=== PATIENT | female | born 1945 | race Caucasian/White ===

== ENCOUNTER 2017-10-29 19:26 | Inpatient (IN) | payer MEDICARE ==
[~2017-10-29] VITALS: Ht 162.6 cm; Wt 55.8 kg
--- NOTE | 2017-10-29 19:40 | NUR ---
LAB AT BEDSIDE FOR DRAW.
--- NOTE | 2017-10-29 19:50 | NUR ---
CALLED FOR GPS BED
--- NOTE | 2017-10-29 19:50 | NUR ---
PT TO ER BED 6. BIB [employer] FOR +SI/-HI. PER [employer] PT STATED SHE WANTED TO "RUN INTO TRAFFIC". PT PLACED IN ON USABILITY ARCHITECT. VSS/RESP EVEN UNLABORED/NAD NOTED/SKIN WARM AND DRY/AFEBRILE/DENIES N-V-D/AOX4. AWAITNG MD CHOI.
[2017-10-29 19:52] LABS: BASOPHILS # (AUTO) 0.1 /CMM (0.0-0.2); BASOPHILS % (AUTO) 1.2 % (0.0-2.0); EOSINOPHILS % (AUTO) 1.1 % (0.0-6.0); HEMATOCRIT 39 % (33-45); HEMOGLOBIN 12.4 g/dL (11.5-14.8); LYMPHOCYTES # (AUTO) 1.1 /CMM (0.8-4.8); LYMPHOCYTES % (AUTO) 18.7 % (20.0-44.0); MEAN CORPUSCULAR HEMOGLOBIN 28 PG (26.0-33.0); MEAN CORPUSCULAR HGB CONC 32 g/dl (31.0-36.0); MEAN CORPUSCULAR VOLUME 87 fL (82-100); MONOCYTES # (AUTO) 0.5 /CMM (0.1-1.30); MONOCYTES % (AUTO) 9.1 % (2.0-12.0); NEUTROPHILS # (AUTO) 4.1 /CMM (1.8-8.9); NEUTROPHILS % (AUTO) 69.9 % (43.0-81.0); PLATELET COUNT (AUTO) 242 /CMM (150-450); RDW COEFFICIENT OF VARIATION 14.1 (11.5-15.0); RED BLOOD CELL COUNT(AUTO) 4.45 MIL/uL (4.0-5.2); WHITE BLOOD COUNT (AUTO) 5.8 K/uL (4.3-11.0)
--- NOTE | 2017-10-29 19:52 | NUR ---
URINE SPECIMEN OBTAINED AND SENT TO THE LAB.
[2017-10-29 20:02] LABS: CALCIUM, SERUM 8.5 mg/dL (8.5-10.1); CARBON DIOXIDE 25 mmol/L (21-32); CHLORIDE 103 mmol/L (98-107); CREATININE 1.1 mg/dL (0.6-1.3); GLUCOSE 123 mg/dL (74-106); POTASSIUM 4.5 mmol/L (3.5-5.1); SODIUM SERUM 139 mmol/L (136-145); UREA NITROGEN, BLOOD 30 mg/dL (7-18)
[2017-10-29 20:06] LABS: ALANINE AMINOTRANSFERASE 24 U/L (12-78); ALBUMIN 3.5 g/dL (3.4-5.0); ALCOHOL, BLOOD < 3 mg/dL (0-0); ALKALINE PHOSPHATASE 102 U/L (46-116); ASPARTATE AMINOTRANSFERASE 28 U/L (15-37); BILIRUBIN,DIRECT 0.1 mg/dL (0.0-0.2); BILIRUBIN,TOTAL 0.3 mg/dL (0.2-1.0); TOTAL PROTEIN, SERUM 8.5 g/dL (6.4-8.2)
[2017-10-29 20:10] LABS: SALICYLATE 2.6 mg/dL (2.8-20.0)
--- NOTE | 2017-10-29 20:14 | NUR ---
BED 217 ITS A SINGLE
[2017-10-29 20:28] LABS: ACETAMINOPHEN < 10 ug/ml (10-30)
[2017-10-29 21:09] LABS: APPEARANCE,URINE CLEAR (CLEAR); BILIRUBIN,URINE NEGATIVE (NEGATIVE); BLOOD, URINE TRACE Ery/uL (NEGATIVE); COLOR,URINE YELLOW (YELLOW); KETONES,URINE NEGATIVE (NEGATIVE); LEUKOCYTE ESTERASE ,URINE NEGATIVE (NEGATIVE); NITRITE, URINE NEGATIVE (NEGATIVE); PH,URINE 5.5 (5.0-8.0); PROTEIN,URINE TRACE mg/dl (NEGATIVE); UGLUCOSE NEGATIVE (NEGATIVE); UROBILINOGEN,URINE 0.2 EU/dL (0.2)
--- NOTE | 2017-10-29 21:10 | NUR ---
REPORT GIVEN TO INES CARR FOR [facility].
--- NOTE | 2017-10-29 21:12 | NUR ---
PT RANSPORTED TO [facility] VIA WC WITH EMT. VSS.
[2017-10-29 21:14] LABS: RBC,URINE 0-2 /HPF (0-2); WBC,URINE 0-2 /HPF (0-3)
[2017-10-29 21:15] LABS: BACTERIA,URINE 1+ /HPF (None Seen)
[2017-10-29 21:30] VITALS: BP 148/78
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
[2017-10-29] MEDS ORDERED: MAGNESIUM HYDROXIDE 30 ML UDC PO PRN (22:00)
[2017-10-29] MEDS: ACETAMINOPHEN 325 MG TABLET PO PRN (22:20)
[2017-10-29] MEDS: TEMAZEPAM 7.5 MG CAPSULE PO PRN (22:55)
[2017-10-29 23:34] VITALS: BP 148/78
[2017-10-30 07:31] LABS: BASOPHILS % (AUTO) 0.7 % (0.0-2.0); EOSINOPHILS % (AUTO) 2.7 % (0.0-6.0); HEMATOCRIT 38 % (33-45); HEMOGLOBIN 12.6 g/dL (11.5-14.8); LYMPHOCYTES # (AUTO) 1.4 /CMM (0.8-4.8); LYMPHOCYTES % (AUTO) 28.2 % (20.0-44.0); MEAN CORPUSCULAR HEMOGLOBIN 29 PG (26.0-33.0); MEAN CORPUSCULAR HGB CONC 33 g/dl (31.0-36.0); MEAN CORPUSCULAR VOLUME 87 fL (82-100); MONOCYTES # (AUTO) 0.5 /CMM (0.1-1.30); MONOCYTES % (AUTO) 9.9 % (2.0-12.0); NEUTROPHILS # (AUTO) 2.9 /CMM (1.8-8.9); NEUTROPHILS % (AUTO) 58.5 % (43.0-81.0); PLATELET COUNT (AUTO) 228 /CMM (150-450); RDW COEFFICIENT OF VARIATION 14.3 (11.5-15.0); RED BLOOD CELL COUNT(AUTO) 4.39 MIL/uL (4.0-5.2); WHITE BLOOD COUNT (AUTO) 4.9 K/uL (4.3-11.0)
[2017-10-30 07:48] LABS: CHOLESTEROL 186 mg/dL (<200); HDL CHOLESTEROL 85 mg/dL (40-60); LDL 84 mg/dL (0-99); TRIGLYCERIDES 91 mg/dL (30-150)
[2017-10-30 07:51] LABS: ALBUMIN 3.4 g/dL (3.4-5.0); BILIRUBIN,TOTAL 0.5 mg/dL (0.2-1.0); CALCIUM, SERUM 8.3 mg/dL (8.5-10.1); CREATININE 1.2 mg/dL (0.6-1.3); POTASSIUM 3.6 mmol/L (3.5-5.1); TOTAL PROTEIN, SERUM 8.4 g/dL (6.4-8.2)
[2017-10-30 09:05] VITALS: BP 117/71
[2017-10-30 16:00] VITALS: BP 111/58
[2017-10-30] MEDS: SERTRALINE HCL 25 MG TABLET PO SCH (17:27)
[2017-10-30 20:00] VITALS: BP 136/93
[2017-10-30 21:07] VITALS: BP 136/93
[2017-10-30] MEDS: DONEPEZIL 5 MG TABLET PO SCH (22:14)
[2017-10-30] MEDS: TEMAZEPAM 7.5 MG CAPSULE PO PRN (22:15)
--- NOTE | 2017-10-31 07:05 | NUR ---
gps initial notes Received patient in the [address] way walking around, verbally responsive and no complaint of pain or discomfort noted, on room air and tolerated well. No unusual behavior noted. Will continue to monitor.
[2017-10-31 08:00] VITALS: BP 110/54
[2017-10-31 09:00] VITALS: BP 110/54
[2017-10-31] MEDS ORDERED: ACETAMINOPHEN 650 MG/20.3 ML UDC PO PRN (09:00)
[2017-10-31 16:00] VITALS: BP 177/76
[2017-10-31] MEDS: SERTRALINE HCL 25 MG TABLET PO SCH (17:05)
[2017-10-31] MEDS: ACETAMINOPHEN 325 MG TABLET PO PRN (18:09)
--- NOTE | 2017-10-31 19:24 | NUR ---
gps notes spoke to Adam Alonzo regarding patient BP of 165/72 and per MD to keep monitoring patient. Per MD patient maybe just anxious. Endorsed to ne3xt shift RN.
[2017-10-31 19:54] VITALS: BP 162/83
[2017-10-31] MEDS: LORAZEPAM 0.5 MG TABLET PO PRN (20:18)
[2017-10-31] MEDS: DONEPEZIL 5 MG TABLET PO SCH (22:16)
[2017-11-01 08:00] VITALS: BP 142/87
--- NOTE | 2017-11-01 09:29 | NUR ---
KARELY faxed referral to Ashly family literacy coordinator at [facility] Address: [address] [place] [address] for review.
--- NOTE | 2017-11-01 10:43 | NUR ---
INITIAL DISCHARGE PLAN: Per pts daughter, pt needs SNF placement. Pts daughter is working towards relocating pt to [place] but will need placement in the interim. SW will help form a safe and proper discharge in collaboration with .
--- NOTE | 2017-11-01 10:43 | NUR ---
SW WAS CONTACTED BY Ashly clinical administrative coordinator at [facility] Address: [address] [place] [address] stating that pt was accepted to their facility.
[2017-11-01 16:00] VITALS: BP 123/93
[2017-11-01] MEDS: SERTRALINE HCL 25 MG TABLET PO SCH (16:13)
[2017-11-01] MEDS ORDERED: QUETIAPINE FUMARATE 25 MG TABLET PO SCH ×2 (20:00)
[2017-11-01 20:15] VITALS: BP 154/70
[2017-11-01] MEDS: DONEPEZIL 5 MG TABLET PO SCH (21:26)
[2017-11-02 08:00] VITALS: BP 149/70
[2017-11-02 16:00] VITALS: BP 157/88
[2017-11-02 20:01] VITALS: BP 154/70
[2017-11-02] MEDS: QUETIAPINE FUMARATE 25 MG TABLET PO SCH (20:15)
[2017-11-02] MEDS: DONEPEZIL 5 MG TABLET PO SCH (21:21)
[2017-11-03 08:15] VITALS: BP 134/78
[2017-11-03] MEDS: DIVALPROEX SODIUM 125 MG CAP.SPRINK PO SCH ×2 (12:16→21:09)
[2017-11-03 16:14] VITALS: BP 140/76
[2017-11-03] MEDS: MAG HYDROX/AL HYDROX/SIMETH 30 ML UDC PO PRN (17:05)
--- NOTE | 2017-11-03 17:05 | NUR ---
GPS/RN-NOTES PATIENT C/O INDIGESTION. MAALOX 30ML GIVEN PRN ORDER. WILL CONT. MONITORING.
--- NOTE | 2017-11-03 18:51 | NUR ---
GPS/RN-NOTES PATIENT C/O OF DIARRHEA X3, [employer] MADE AWARE WITH THE T.O ORDER OF KUB OF ABDOMEN AND STOOL X1 FOR C-DIFF TEST. WILL ENDORSE TO INCOMING NURSE FOR THE STOOL COLLECTION AND CONTINUITY OF CARE.
[2017-11-03 20:00] VITALS: BP 151/86
[2017-11-03] MEDS: QUETIAPINE FUMARATE 25 MG TABLET PO SCH (20:34)
[2017-11-03] MEDS: DONEPEZIL 5 MG TABLET PO SCH (21:09)
--- NOTE | 2017-11-04 06:17 | NUR ---
GPS/RN PATIENT IS AWAKE AT THIS TIME, PATIENT STATED SHE HAD A GOOD NIGHT SLEEP, PATIENT IS CALM AND COMFORTABLE, ALL NEEDS ATTENDED AT THIS TIME, WILL CONTINUE TO MONITOR.
--- NOTE | 2017-11-04 07:25 | NUR ---
GPS/RN NO BOWEL MOVEMENT NOTED THE WHOLE SHIFT. ENDORSED.
[2017-11-04 07:54] LABS: BASOPHILS # (AUTO) 0.1 /CMM (0.0-0.2); BASOPHILS % (AUTO) 1.1 % (0.0-2.0); EOSINOPHILS % (AUTO) 2.2 % (0.0-6.0); HEMATOCRIT 38 % (33-45); HEMOGLOBIN 12.2 g/dL (11.5-14.8); LYMPHOCYTES # (AUTO) 1.4 /CMM (0.8-4.8); LYMPHOCYTES % (AUTO) 29.6 % (20.0-44.0); MEAN CORPUSCULAR HEMOGLOBIN 28 PG (26.0-33.0); MEAN CORPUSCULAR HGB CONC 32 g/dl (31.0-36.0); MEAN CORPUSCULAR VOLUME 87 fL (82-100); MONOCYTES # (AUTO) 0.6 /CMM (0.1-1.30); MONOCYTES % (AUTO) 11.3 % (2.0-12.0); NEUTROPHILS # (AUTO) 2.7 /CMM (1.8-8.9); NEUTROPHILS % (AUTO) 55.8 % (43.0-81.0); PLATELET COUNT (AUTO) 226 /CMM (150-450); RDW COEFFICIENT OF VARIATION 14.3 (11.5-15.0); RED BLOOD CELL COUNT(AUTO) 4.33 MIL/uL (4.0-5.2); WHITE BLOOD COUNT (AUTO) 4.9 K/uL (4.3-11.0)
[2017-11-04 08:00] VITALS: BP 123/65
[2017-11-04] MEDS: DIVALPROEX SODIUM 125 MG CAP.SPRINK PO SCH ×5 (08:07→21:02)
[2017-11-04 08:08] LABS: CALCIUM, SERUM 8.8 mg/dL (8.5-10.1); CREATININE 0.9 mg/dL (0.6-1.3); POTASSIUM 4.6 mmol/L (3.5-5.1)
[2017-11-04] MEDS: LORAZEPAM 0.5 MG TABLET PO PRN (14:18)
--- NOTE | 2017-11-04 14:19 | NUR ---
RN NOTES ADMINISTERED ATIVAN 0.5 MG PO RN FOR ANXIETY PER PATIENT REQUEST, V/S TAKEN STABLE BP- 125/69, P-79, CONTINUED MONITORING.
[2017-11-04 16:10] VITALS: BP 139/99
[2017-11-04] MEDS: MAG HYDROX/AL HYDROX/SIMETH 30 ML UDC PO PRN (18:56)
--- NOTE | 2017-11-04 18:57 | NUR ---
RN NOTES ADMINISTERED MAALOX 30 MG/ML FOR UPSET STOMACH PER PATIENT REQUEST, CONTINUED MONITORING.
[2017-11-04 20:00] VITALS: BP 140/88
[2017-11-04] MEDS: QUETIAPINE FUMARATE 25 MG TABLET PO SCH (21:02)
[2017-11-04] MEDS: DONEPEZIL 5 MG TABLET PO SCH (21:52)
[2017-11-04] MEDS: TEMAZEPAM 7.5 MG CAPSULE PO PRN (21:52)
[2017-11-04] MEDS: ACETAMINOPHEN 325 MG TABLET PO PRN (21:53)
[2017-11-05 08:00] VITALS: BP 136/68
[2017-11-05] MEDS: DIVALPROEX SODIUM 125 MG CAP.SPRINK PO SCH ×3 (08:19→20:14)
[2017-11-05] MEDS: ACETAMINOPHEN 325 MG TABLET PO PRN (14:37)
[2017-11-05 16:00] VITALS: BP 120/65
[2017-11-05 20:00] VITALS: BP 129/55
[2017-11-05] MEDS: QUETIAPINE FUMARATE 25 MG TABLET PO SCH (20:14)
[2017-11-05] MEDS: MAG HYDROX/AL HYDROX/SIMETH 30 ML UDC PO PRN (20:15)
[2017-11-05] MEDS: DONEPEZIL 5 MG TABLET PO SCH (21:14)
[2017-11-06 08:00] VITALS: BP 143/70
[2017-11-06] MEDS: DIVALPROEX SODIUM 125 MG CAP.SPRINK PO SCH ×2 (08:18→13:12)
[2017-11-06] MEDS: LORAZEPAM 0.5 MG TABLET PO PRN ×2 (09:10→15:08)
[2017-11-06] MEDS ORDERED: diphenhydrAMINE HCL 25 MG CAPSULE PO PRN (15:00)
[2017-11-06 16:00] VITALS: BP 106/65
[2017-11-06 19:53] VITALS: BP 154/68
[2017-11-06] MEDS: QUETIAPINE FUMARATE 25 MG TABLET PO SCH (20:19)
[2017-11-06] MEDS: DONEPEZIL 5 MG TABLET PO SCH (21:07)
[2017-11-06 23:00] VITALS: BP 110/65
[2017-11-07] MEDS: DIVALPROEX SODIUM 125 MG CAP.SPRINK PO SCH ×3 (06:26→14:00)
[2017-11-07 08:00] VITALS: BP 112/67
--- NOTE | 2017-11-07 11:48 | NUR ---
WOUND CARE CONSULT: PT PRESENTS AMBULATORY AND CONTINENT WITH SLIGHT REDNESS/RASH TO LOWER LEGS. DEFER TO MD. WILL SEE PRN. CURRENT LAUREN SCORE IS 21.
[2017-11-07 16:00] VITALS: BP 134/73
[2017-11-07] MEDS: QUETIAPINE FUMARATE 25 MG TABLET PO SCH (20:10)
[2017-11-07] MEDS: LORAZEPAM 0.5 MG TABLET PO PRN (20:25)
--- NOTE | 2017-11-07 20:25 | NUR ---
GPS-RN PATIENT C/O FEELING ANXIOUS. ADMINISTERED ATIVAN 0.5MG PO ORDERED. WILL CONTINUE TO MONITOR [id number] CHECK FOR SAFETY AND BEHAVIOR.
[2017-11-07 20:51] VITALS: BP_SYST 150; BP_SYST 167; BP_DIAS 78; BP_DIAS 81
[2017-11-07] MEDS: DONEPEZIL 5 MG TABLET PO SCH (21:29)
--- NOTE | 2017-11-08 03:18 | NUR ---
GPS-RN PATIENT NOTED RIGHT LOWER LEG AND FOOT SWELLING, +4 PITTING EDEMA, COMPLAINS MILD PAIN. SKIN IS WARM TO TOUCH AROUND THE SURROUNDING AREA. NOTIFIED NO BAKE MOLDER ANTHONY REGARDING THE ABOVE MENTIONED FINDING ASSESSMENT WITH ORDER TO REPEAT VENOUS DUPLEX NOTED AND CARRIED OUT. RADIOLOGY DEPT MADE AWARE, STATED IT WILL BE DONE IN THE MORNING. WILL ENDORSE TO THE DAY SHIFT NURSE FOR CONTINUITY OF CARE.
[2017-11-08] MEDS: ACETAMINOPHEN 325 MG TABLET PO PRN ×3 (03:33→16:05)
[2017-11-08] MEDS: DIVALPROEX SODIUM 125 MG CAP.SPRINK PO SCH ×3 (06:02→14:41)
[2017-11-08 08:00] VITALS: BP 149/103
--- NOTE | 2017-11-08 09:23 | NUR ---
given tylenol 650 mg po for rt. leg pain.
[2017-11-08 16:00] VITALS: BP 154/107
[2017-11-08] MEDS: MAG HYDROX/AL HYDROX/SIMETH 30 ML UDC PO PRN (16:05)
--- NOTE | 2017-11-08 16:19 | NUR ---
GIVEN MAALOX AND TYLENOL FOR STOMACH ACHE.
--- NOTE | 2017-11-08 18:00 | NUR ---
dr. pablo contacted as to need for doppler of rt. ext.states no need. went in to pt's rm. this am and looked at pt's leg.
[2017-11-08 20:40] VITALS: BP 166/94
[2017-11-08] MEDS: QUETIAPINE FUMARATE 25 MG TABLET PO SCH (20:42)
[2017-11-08] MEDS: DONEPEZIL 5 MG TABLET PO SCH (21:04)
[2017-11-08] MEDS: LORAZEPAM 0.5 MG TABLET PO PRN (21:22)
--- NOTE | 2017-11-08 21:22 | NUR ---
GPS-RN PATIENT IS ANXIOUS, RESTLESS AND AGITATED. ADMINISTERED ATIVAN 0.5MG PO ORDERED. WILL CONTINUE TO MONITOR [id number] CHECK FOR SAFETY AND BEHAVIOR.
[2017-11-09] MEDS: DIVALPROEX SODIUM 125 MG CAP.SPRINK PO SCH ×3 (06:05→13:10)
[2017-11-09 07:25] LABS: BASOPHILS % (AUTO) 0.7 % (0.0-2.0); EOSINOPHILS % (AUTO) 2.6 % (0.0-6.0); HEMATOCRIT 36 % (33-45); HEMOGLOBIN 11.7 g/dL (11.5-14.8); LYMPHOCYTES # (AUTO) 1.4 /CMM (0.8-4.8); LYMPHOCYTES % (AUTO) 30.1 % (20.0-44.0); MEAN CORPUSCULAR HEMOGLOBIN 28 PG (26.0-33.0); MEAN CORPUSCULAR HGB CONC 32 g/dl (31.0-36.0); MEAN CORPUSCULAR VOLUME 88 fL (82-100); MONOCYTES # (AUTO) 0.5 /CMM (0.1-1.30); MONOCYTES % (AUTO) 11.7 % (2.0-12.0); NEUTROPHILS # (AUTO) 2.5 /CMM (1.8-8.9); NEUTROPHILS % (AUTO) 54.9 % (43.0-81.0); PLATELET COUNT (AUTO) 229 /CMM (150-450); RDW COEFFICIENT OF VARIATION 14.4 (11.5-15.0); RED BLOOD CELL COUNT(AUTO) 4.14 MIL/uL (4.0-5.2); WHITE BLOOD COUNT (AUTO) 4.6 K/uL (4.3-11.0)
[2017-11-09 07:42] LABS: BILIRUBIN,TOTAL 0.2 mg/dL (0.2-1.0); CALCIUM, SERUM 8.5 mg/dL (8.5-10.1); CREATININE 0.9 mg/dL (0.6-1.3); MAGNESIUM 2.3 mg/dL (1.8-2.4); POTASSIUM 4.2 mmol/L (3.5-5.1); TOTAL PROTEIN, SERUM 7.8 g/dL (6.4-8.2)
[2017-11-09 08:00] VITALS: BP 112/71
[2017-11-09] MEDS: ACETAMINOPHEN 325 MG TABLET PO PRN (13:09)
--- NOTE | 2017-11-09 15:29 | NUR ---
SW was contacted by Ashly career development coordinator/teacher at [facility] Address: [address] [place] [address] stating that there are no beds available for pts discharge on this present day.
[2017-11-09 16:00] VITALS: BP 130/68
[2017-11-09 20:15] VITALS: BP 148/72
[2017-11-09] MEDS: QUETIAPINE FUMARATE 25 MG TABLET PO SCH (20:52)
[2017-11-09] MEDS: DONEPEZIL 5 MG TABLET PO SCH (21:00)
[2017-11-09] MEDS: LORAZEPAM 0.5 MG TABLET PO PRN (22:43)
--- NOTE | 2017-11-09 22:43 | NUR ---
GPS-RN PATIENT IS ANXIOUS, RESTLESS AND AGITATED. ADMINISTERED ATIVAN 0.5MG PO ORDERED. WILL CONTINUE TO MONITOR [id number] CHECK FOR SAFETY AND BEHAVIOR.
[2017-11-10] MEDS: DIVALPROEX SODIUM 125 MG CAP.SPRINK PO SCH ×3 (06:00→13:39)
[2017-11-10 08:00] VITALS: BP 143/75
--- NOTE | 2017-11-10 13:14 | NUR ---
DR. ROMO GAVE AN ORDER TO D/C HOLD AND D/C TO [facility] AND TO CONTINUE SAME MEDS INCLUDING PRN AND PT. TO FOLLOW UP WITH PSYCH AND MEDICAL DOCTORS.
--- NOTE | 2017-11-10 14:21 | NUR ---
REPORT GIVEN TO DANYA OVER THE FACILITY.
--- NOTE | 2017-11-10 15:16 | NUR ---
DISCHARGE NOTE: Pt will discharge at 1600 to [facility] Address: [address], [place] [address] . via [facility] ambulance trip #[id number]. Pts daughter Tavia [phone] was notified and agreed with discharge plan. Pts mood was pleasant with congruent affect. Pt denied suicidal/homicidal ideations and denied visual/auditory hallucinations. Pt will be under the care of Psychiatrist: Dr. Lorraine Harris [address], [place] [address] [phone] and Proposal Engineer: Dr. Adeel Gutierrez Address: [address], [place] [address] Phone: . Patient was provided referrals to address her alcohol use. Patient was referred to the [address] [id number] / and was encouraged to present at 9am on Tuesday, November 11, 2017. Additional resources included [facility] [address] [place] [address] and [facility] [address] [place] [address] . The multidisciplinary exitcare form was done, printed, signed, and given to the patient.
--- NOTE | 2017-11-10 15:40 | NUR ---
PT. IS FOR DISCHARGE AND THE BP RANGES FROM 174/65, IA 91; 164/92, IA 87 AND THE LATEST 170/[address] CRUZ NOTIFIED AND ORDERED HYDRALAZINE 25 MG PO X1 AND TO RECHECKED IN 30 MINUTES AND IF NORMAL PT. CAN GO.
--- NOTE | 2017-11-10 15:52 | NUR ---
GPS/RN ADMINISTERED HYDRALAZINE 25 MG X 1 FOR BP 170/98. WILL CONTINUE TO MONITOR AND RECHECK IN 30 MIN.
[2017-11-10] MEDS ORDERED: hydrALAZINE HCL 25 MG TABLET PO ONE (16:00)
[2017-11-10] MEDS ORDERED: CLONIDINE HCL 0.1 MG TABLET PO ONE (18:00)
--- NOTE | 2017-11-10 18:01 | NUR ---
GPS/RN DR CRUZ NOTIFIED REGARDING BP OF 177/85, NEW ORDER OF CLONIDINE 0.2 MG X 1 DOSE NOW. WILL RECHECK BP IN 30 MIN. IF BP WNL CLEAR FOR DISCHARGE TO SNF PER DR CRUZ.
--- NOTE | 2017-11-10 18:34 | NUR ---
GPS/RN BP 148/91, WILL NOTIFY AMBULANCE TRANSPORT FOR PICKUP FOR TRANSFER TO [facility].
--- NOTE | 2017-11-10 19:51 | NUR ---
DC NOTES: AMBULANCE CAME TO [facility] PT. REPORT GIVEN TO [employer] AND DC P[employer]ER WORKS AND BELONGINGS HANDED TO [employer] CREW. PT AND PT'S FAMILY AWARE OF PT DC TODAY GOING TO [facility]. PT MEDICALLY CLEARED BY DR CRUZ, AND PSYCHMD DR ROMO. VS TAKEN AND RECORDED FOLLOW 143/70 HR 90 RR 18, T 98.2. REPORT GIVEN TO FACILITY BY DAY RN. PT LEFT IN STABLE CONDITION, CALM AND COOPERATIVE, DENIES ANY SI/HI VIA AMBULANCE.
[2017-11-10 19:52] VITALS: BP 143/70
== END 2017-11-10 20:00 | DRG 885 ==
LOC: ER 19:28 → GPS 20:31
PROVIDERS: ADMIT Psychiatry & Neurology Psychosomatic Medicine; ATTEND Psychiatry & Neurology Psychosomatic Medicine
DX: F33.3 Major depressive disorder, recurrent, severe with psychotic symptoms (principal); F01.50 Vascular dementia, unspecified severity, without behavioral disturbance, psychotic disturbance, mood disturbance, and anxiety; N17.0 Acute kidney failure with tubular necrosis; F41.9 Anxiety disorder, unspecified; F39 Unspecified mood [affective] disorder; Z73.6 Limitation of activities due to disability
CPT/HCPCS: 36415; 71100-TC; 74018; 80048-TC; 80053-TC; 80061-TC; 80076-TC; 80164-TC; 80305; 81000-TC; 83735-TC; 85025-TC; 87081-TC; 93971-TC; A4606; G0480; J7050; Q0163; Z7610